=== PATIENT | female | born 2000 | race Two or more races ===

== ENCOUNTER 2024-02-24 18:34 | Emergency (ER) | payer OTHER ==
[~2024-02-24] VITALS: Ht 160 cm; Wt 77.1 kg
[2024-02-24] MEDS ORDERED: GUAIFENESIN/DEXTROMETHORPHAN 10ML BLIST.PACK PO STA (20:52)
[2024-02-24] MEDS ORDERED: CETIRIZINE HCL 5 MG/5 ML ML PO STA (20:53)
[2024-02-24] MEDS ORDERED: CETIRIZINE HCL 5MG/5ML BLIST.PACK PO ONE (20:56)
[2024-02-24] MEDS ORDERED: GUAIFENESIN/DEXTROMETHORPHAN 10ML BLIST.PACK PO ONE (20:57)
[2024-02-24 21:26] LABS: HEMATOCRIT 37.3 % (36.0-45.00); HEMOGLOBIN 12.7 g/dL (12.0-15.00); MEAN CELL VOLUME 86.8 fL (80.00-100.00); MEAN CORPUSCULAR HEMOGLOBIN 29.6 pg (27.00-32.0); MEAN CORPUSCULAR HGB CONC 34.1 g/dl (32.0-36.0); PLATELET COUNT 190 K/uL (150-450); RED BLOOD COUNT 4.29 M/uL (4.00-6.00); RED CELL DISTRIBUTION WIDTH 13.6 % (11.5-14.5)
[2024-02-24] MEDS ORDERED: SINGULAIR10 MG PO (22:06)
[2024-02-24] MEDS ORDERED: MUCINEX DM ER1 EACH PO (22:06)
[2024-02-24] MEDS ORDERED: ZYRTEC10 MG PO (22:06)
== END 2024-02-24 22:26 | disposition home or self-care (01) ==
LOC: ER 18:34
PROVIDERS: General Practice
DX: J06.9 Acute upper respiratory infection, unspecified (principal); Z91.013 Allergy to seafood; Z20.822 Contact with and (suspected) exposure to COVID-19